=== PATIENT | male | born 1945 | race African-American/Black ===

== ENCOUNTER 2017-03-08 19:19 | Emergency (ER) | payer MEDICARE, OTHER ==
[~2017-03-08] VITALS: Ht 172.7 cm; Wt 88.0 kg
[2017-03-08] MEDS ORDERED: METFORMIN HCL1000 M1 ORAL (19:28)
[2017-03-08] MEDS ORDERED: [UNRECOGNIZED DRUG - REMARK] (19:29)
--- NOTE | 2017-03-08 19:37 | Emergency Room Report ---
History of Present Illness General Chief Complaint: Lower Extremity Injury Source: Patient Present Illness HPI 71 y/o male c/o right ankle pain x 2 days. States he was at a fast food restaurant when he rolled his right ankle after tripping. States he didn't fall , just rolled his ankle. Is able to bear weight but has pain with ROM of right ankle. Pain is tender along base of 5th MTP. States he woke up and foot was even more swollen today. Took 400mg ibuprofen this morning w/o improvement. No RICE therapy. Patient denies any numbness, tingling, pressure, paralysis, cyanosis, bruising, loss of sensation, or loss of range of motion. Allergies: Coded Allergies: No Known Allergies (Unverified , 03/08/17) Patient History Past Medical History: see triage record Past Surgical History: none Pertinent Family History: none Reviewed Nursing Documentation: PMH: Agreed, PSxH: Agreed Nursing Documentation-PMH Hx Hypertension: Yes Hx Diabetes: Yes Review of Systems All Other Systems: negative except mentioned in HPI Physical Exam Vital Signs Date Time Temp Pulse Resp B/P Pulse Ox O2 Delivery O2 Flow Rate FiO2 03/08/17 19:22 98.2 68 16 187/90 97 Room Air Sp02 EP Interpretation: reviewed, normal General Appearance: normal inspection Head: normocephalic, atraumatic Eyes: bilateral eye normal inspection ENT: hearing grossly normal, normal pharynx, no angioedema, normal voice Neck: normal inspection Respiratory: chest non-tender, lungs clear, normal breath sounds, speaking full sentences Cardiovascular #1: regular rate, rhythm, no edema Musculoskeletal: back normal, normal range of motion, other - antalgic gait, tender - Swelling and edema with TTP at base of 5th MTP of right foot Neurologic: alert, oriented x3, responsive, motor strength/tone normal, sensory intact, speech normal Skin: normal color, no rash, warm/dry, well hydrated Medical Decision Making PA Attestation Dr. Cobb my supervising physician with whom patient management has been discussed with. Diagnostic Impression: Primary Impression: Right ankle sprain Qualified Codes: S93.401A - Sprain of unspecified ligament of right ankle, initial encounter ER Course Pt. presents to the ED c/o ankle pain / foot pain Ddx considered but are not limited to fracture, contusion, dislocation, sprain, strain Vital signs: are WNL, pt. is afebrile H&PE are most consistent with ankle sprain ORDERS: XR Ankle, XR Foot ED INTERVENTIONS: none required at this time. DISCHARGE: At this time pt. is stable for d/c to home. Will provide printed patient care instructions, and any necessary prescriptions. Care plan and follow up instructions have been discussed with the patient prior to discharge. Other X-Ray Diagnostic Results Other X-Ray Diagnostic Results : X-Ray Ordered: Right Ankle / Foot Date: March 08, 2017 EP Interpretation: Yes Findings: no fractures, no dislocation Number of Views: 3 Last Vital Signs Date Time Temp Pulse Resp B/P Pulse Ox O2 Delivery O2 Flow Rate FiO2 03/08/17 19:22 98.2 68 16 187/90 97 Room Air Status: unchanged Disposition: HOME, SELF-CARE Condition: Stable Scripts Naproxen* (NAPROSYN*) 500 Mg Tablet 500 MG ORAL TWICE A DAY, #20 TAB Prov: PRECIOUS LEE 03/08/17 Patient Instructions: Ankle Sprain Additional Instructions: Take medication as directed. Patient advised to follow up with primary care provider if no improvement within next 5-7 days. Advised patient to use RICE therapy and nsaids as prescribed. Patient is to go to the ER immediately if they experience any pain that is not responding to medication, excess swelling, pressure feeling, loss of color, cyanosis, paralysis, or numbness. PRECIOUS LEE March 08, 2017 19:36
[2017-03-08] MEDS ORDERED: NAPROSYN500 M1 ORAL (20:34)
[2017-03-08 20:56] VITALS: BP 187/90
--- NOTE | 2017-03-09 10:29 | Diagnostic Imaging Report ---
Indication: PAIN Technique: 3 views of the right ankle Comparison: none Findings: No acute fractures. No dislocations. The joint spaces are preserved. There is minimal soft tissue swelling over the lateral malleolus Impression: No acute process This agrees with the preliminary interpretation provided by the emergency room physician
--- NOTE | 2017-03-09 10:49 | Diagnostic Imaging Report ---
Indication: PAIN Technique: 3 views right foot Comparison: None Findings: No acute fractures. No dislocations. Joint spaces are preserved. Impression: Negative This agrees with the preliminary interpretation provided by the emergency room physician
== END 2017-03-08 23:00 | disposition home or self-care (01) ==
LOC: EMR 22:49
DX: S93.401A Sprain of unspecified ligament of right ankle, initial encounter (principal); I10 Essential (primary) hypertension; E11.9 Type 2 diabetes mellitus without complications; X58.XXXA Exposure to other specified factors, initial encounter; Y93.9 Activity, unspecified; Y92.511 Restaurant or cafe as the place of occurrence of the external cause
CPT/HCPCS: 29540; 99283